=== PATIENT | male | born 1990 | race Caucasian/White ===

== ENCOUNTER 2020-02-25 16:24 | Outpatient (REF) | payer BC, SELFPAY ==
[2020-02-28 18:58] LABS: SARS-CoV-2 RNA Undetected (Undetected); SARS-CoV-2 Specimen Source Nasopharynx
== END 2020-02-25 16:44 ==
LOC: NCHCN 16:24
PROVIDERS: PCP Nurse Practitioner Family; Visit Provider Nurse Practitioner Family
DX: J06.9 Acute upper respiratory infection, unspecified (principal)
CPT/HCPCS: U0003

== ENCOUNTER 2020-09-05 01:00 | Outpatient (CLI) | payer OTHER, SELFPAY ==
--- NOTE | 2020-09-05 09:15 | DI.MRI_ITS ---
EXAM: MR LUMBAR SPINE WO CLINICAL HISTORY: INCREASING RECURRENT LOW BACK PAIN,[id number],M54.5. TECHNIQUE: Multiplanar multisequence MRI was performed. COMPARISON: No exams were available for comparison FINDINGS: The vertebral bodies are well maintained in height. No focal lesions are seen. There appears to be red marrow reconversion. Conus medullaris appears normal. The T11-12 through L1-2 discs and L3-4 di sc have normal appearance. There is minimal disc desiccation at L2-3. At L4-5: There is mild concen tric disc bulging. There are mild facet degenerative changes. There is no neural foraminal narrowin g or central canal stenosis. At L5-S1, there is disc desiccation and mild disc bulging. There is no significant central canal stenosis or neural foraminal narrowing. There are bilateral nerve root sh eath cysts. IMPRESSION: Mild degenerative disc changes at L4-5 and L5-S1. DATA REPOSITORY:
== END 2020-09-05 01:20 ==
PROVIDERS: PCP Nurse Practitioner Family; Visit Provider Nurse Practitioner Primary Care
DX: M47.816 Spondylosis without myelopathy or radiculopathy, lumbar region (principal); M54.5 Low back pain
CPT/HCPCS: 72148

== ENCOUNTER 2020-11-29 11:37 | Outpatient (CLI) | payer OTHER, SELFPAY ==
[2020-11-29 11:42] VITALS: BP 138/90; PULSE 63; RESP 17; TEMP 36.7; O2SAT 96
--- NOTE | 2020-11-29 12:30 | DI.RAD_ITS ---
EXAM: XR PAIN CLINIC LUMBAR SP 2V CLINICAL HISTORY: Dx:Lumbar Spondylosis TECHNIQUE: 2D and realtime digital imaging was performed. CONTRAST MATERIAL: Refer to procedure report. COMPARISON: No exams were available for comparison FINDINGS: Fluoroscopy was provided for Dr. Singleton during the performance of a lumbar medial branch block. Derrell conway refer to the procedure report for complete details. Fluoro time: 63.6 seconds IMPRESSION:
--- NOTE | 2020-11-29 12:33 | PDOC.PAIN ---
Pain Clinic Procedure Note Procedure Note Procedure Note: Date of procedure: November 29, 2020 Lumbar/Sacral Medial Branch Blocks #1 CORTES FLANAGAN has been referred to the [facility] for lumbar/sacral medial branch blocks. COMMENTS: He was evaluated by Ms. Samson in clinic on 11/06/20 and had an MRI of the lumbar spine on 09/05/20. I did review all of this information. DX: Lumbosacral spondylosis without myelopathy Patient was interviewed and the medical record reviewed. There were no medical, pharmacologic, radiographic or other structural contraindications to attempting fluoroscopically guided local anesthetic lumbar/sacral medial branch blocks. Risks and expected side effects as well as potential benefit of the procedure were reviewed and voiced concerns addressed. The printed consent form was signed and witnessed. Standard time-out procedure was performed. Patient was placed in the prone position on the fluoroscopy table and automated blood pressure cuff and pulse oximeter applied. The skin entry points for approaching the anatomic target points of the segmental medial branches of bilateral L3-L5DR were identified with fluoroscopy and marked. Following thorough Chlorhexadine preparation of the skin and draping, a 25 gauge 3.5 spinal needle was placed under fluoroscopic guidance down on to the target point for each respective segmental medial branch. Position was confirmed in A/P, oblique and lateral views with 0.25ml of omnipaque 240. At this point 0.5ml of 0.5% Bupivacaine was injected at each segmental sensory nerve. Vital signs were stable throughout the procedure and were as recorded in the docflowsheet by the nursing staff. Follow up plans and appointments were discussed and was instructed to keep careful note of how the usual pain was modified by these injections. Specifically was asked to keep a pain diary for the next 24 hours using a numeric pain scale of 0-10 and report these results at the follow-up visit. Post procedure instruction was given as documented in the nursing documentation and having met discharge criteria. Patient was discharged from the [facility]. Based on the medial branches blocked today, if the patient has adequate relief and we are able to proceed to radiofrequency ablation, the treatment should result in the denervation of the bilateral L4-L5 and L5-S1 FACET JOINTS. We would expect to denervate a total of 4 facets during the radiofrequency ablation. COMMENTS: He will call back with his 1-4 hour post-procedure pain scores. CC: Sang Li
[2020-11-29 12:41] VITALS: BP 140/94; PULSE 62; RESP 12; O2SAT 99
[2020-11-29] MEDS: Omnipaque 240 MG/ML 50 ML BTL IJ (12:42)
[2020-11-29] MEDS: Bupivacaine 0.5% Pres-Free 10 ML VIAL IJ (12:42)
== END 2020-11-29 11:57 ==
PROVIDERS: PCP Nurse Practitioner Family; Visit Provider Preventive Medicine Occupational Medicine
DX: M47.817 Spondylosis without myelopathy or radiculopathy, lumbosacral region (principal)
CPT/HCPCS: 64493; 64494; 72100; Q9967

== ENCOUNTER 2020-12-19 09:39 | Outpatient (CLI) | payer OTHER, SELFPAY ==
[2020-12-19 10:14] VITALS: BP 132/87; PULSE 50; RESP 17; TEMP 36.8; O2SAT 97
--- NOTE | 2020-12-19 10:41 | DI.RAD_ITS ---
EXAM: XR PAIN CLINIC LUMBAR SP 2V CLINICAL HISTORY: DX: Lumbar Spondylosis,BILAT LUMBAR MEDIAL BRANCH BLOCK TECHNIQUE: Fluoroscopy was provided for the referring physician for guidance with performing injecti on procedure. COMPARISON: No exams were available for comparison FINDINGS: Please see procedure note for details. Fluoro time: 55.1 seconds RADIATION DOSE DELIVERED:
--- NOTE | 2020-12-19 10:44 | PDOC.PAIN ---
Pain Clinic Procedure Note Procedure Note Procedure Note: Date of service: 12/19/20 Lumbar/Sacral Medial Branch Blocks CORTES FLANAGAN has been referred to the [facility] for lumbar/sacral medial branch blocks. COMMENTS: He did very well with his first LMBB on 11/29/20. DX: Lumbosacral spondylosis without myelopathy. Patient was interviewed and the medical record reviewed. There were no medical, pharmacologic, radiographic or other structural contraindications to attempting fluoroscopically guided local anesthetic lumbar/sacral medial branch blocks. Risks and expected side effects as well as potential benefit of the procedure were reviewed and voiced concerns addressed. The printed consent form was signed and witnessed. Standard time-out procedure was performed. Patient was placed in the prone position on the fluoroscopy table and automated blood pressure cuff and pulse oximeter applied. The skin entry points for approaching the anatomic target points of the segmental medial branches of the bilateral L3-L5DR were identified with anfluoroscopy and marked. Following thorough Chlorhexadine preparation of the skin and draping, a 25 gauge 3.5 spinal needle was placed under fluoroscopic guidance down on to the target point for each respective segmental medial branch.Position was confirmed in A/P, oblique and lateral views with 0.25ml of omnipaque 240. At this point I injected 0.5cc of 2% Lidocaine at each segmental sensory nerve. Vital signs were stable throughout the procedure and were as recorded in the docflowsheet by the nursing staff. He maintained asymptomatic bradycardia throughout the procedure starting prior to initiating the procedure. Follow up plans and appointments were discussed and was instructed to keep careful note of how the usual pain was modified by these injections. Specifically was asked to keep a pain diary for the next 24 hours using a numeric pain scale of 0-10 and report these results at the follow-up visit. Post procedure instruction was given as documented in the nursing documentation and having met discharge criteria. Patient was discharged from the [facility]. Based on the medial branches blocked today, if the patient has adequate relief and we are able to proceed to radiofrequency ablation, the treatment should result in the denervation of the bilateral L4-L5 and L5-S1 FACET JOINTS. We would expect to denervate a total of 4 facets during the radiofrequency ablation. COMMENTS: He will call back this is 1-4 hour post-procedure pain levels. Basilio Singleton DO, MPH Pain Management CC: Sang Li
[2020-12-19 10:55] VITALS: BP 150/97; PULSE 60; RESP 17; O2SAT 98
[2020-12-19] MEDS: Lidocaine 2% Pres-Free 5 ML VIAL IJ (10:55)
[2020-12-19] MEDS: Omnipaque 240 MG/ML 50 ML BTL IJ (10:55)
== END 2020-12-19 09:59 ==
PROVIDERS: PCP Nurse Practitioner Family; Visit Provider Preventive Medicine Occupational Medicine
DX: M47.817 Spondylosis without myelopathy or radiculopathy, lumbosacral region (principal)
CPT/HCPCS: 64493; 64494; 72100; Q9967

== ENCOUNTER 2021-02-13 07:43 | Outpatient (CLI) | payer OTHER, SELFPAY ==
--- NOTE | 2021-02-13 06:00 | DI.RAD_ITS ---
EXAM: XR PAIN CLINIC LUMBAR SP 2V CLINICAL HISTORY: DX: Lumbar Spondylosis TECHNIQUE: 2D and realtime digital imaging was performed. CONTRAST MATERIAL: Refer to procedure report. COMPARISON: No exams were available for comparison FINDINGS: Fluoroscopy was provided for Dr. Pathak during the performance of a bilateral radiofrequency ablation. Please refer to the procedure report for complete details. Fluoro time: 57.5 seconds IMPRESSION:
[2021-02-13 07:53] VITALS: BP 142/90; PULSE 62; RESP 17; TEMP 37.1; O2SAT 94
[2021-02-13] MEDS: Lactated Ringers 1,000 ML 80 ML IV (08:29)
[2021-02-13] MEDS: Midazolam 2 MG/2 ML VIAL IVP (08:32)
[2021-02-13] MEDS: fentaNYL 100 MCG/2 ML VIAL IVP ×2 (08:32→08:47)
[2021-02-13 09:02] VITALS: BP 152/96; PULSE 63; RESP 16; O2SAT 98
--- NOTE | 2021-02-13 09:06 | PDOC.PAIN ---
Pain Clinic Procedure Note Procedure Note Procedure Note: Bilateral Lumbar Radiofrequency with Coolief Machine PROCEDURE NOTE Date of Service: February 13, 2021 Patient: MARKUS FLANAGANRYDER SUAZO Provider: CHIDI DUKES MD Pre Operative Diagnosis: lumbar spondylosis Post Operative Diagnosis: same as above PROCEDURE: Radiofrequency Ablation of medial branches - Bilateral L3, L4, L5-DR CORTES SUAZO MASHA was brought into the fluoroscopy suite and positioned into the prone position on the fluoroscopy table and allowed to adjust to a position of comfort. A grounding pad was placed on the right thigh. The lumbar region was widely prepped with a chloraprep solution, allowed to air dry and draped in standard sterile surgical fashion. Local anesthesia was provided by ~20mL of 1% lidocaine delivered with a 25g needle. A 17g 100mm radiofrequency introducer needle was placed to the planned anatomic targets guided with intermittent fluoroscopy with a perpendicular approach to terminally place at the junction of the superior articular process and the transverse process of the bilateral L3, L4, and the base of the sacral ala on the bilateral for the L5 medial branch nerve. The stylets were removed and radiofrequency probes with a 4mm active tip were then inserted. Needle tip position of the probes was verified in the AP, oblique, and lateral views. At each site, the medial branch nerve was stimulated at 2 Hz to a maximum 1-2 volts determined to finalize safe needle and electrode placement. The patient was awake and responsive during this portion of the procedure. Each target was anesthetized with 1-2 mL of 2% Lidocaine for anesthesia for lesioning and then each target was lesioned at 80 degrees Celsius for 2 minutes and 30 seconds. Tissue impedences were noted to be between 250 and 500 Ohms. Post RF lesioning, 0.3cc solution of the 3cc of mixed 0.5% Bupivocaine (2cc) and 40mg/ml of depomedrol (1cc) was injected at each site. Electrodes and needles were then removed and bandages placed over the needle placement sites, the patient then returned to the supine position on a stretcher and transported to the recovery room without hemodynamic, neurologic, or allergic reactions. Fluoroscopic images were printed for hard copy recording and digitally archived. POST PROCEDURE EVALUATION: IMPRESSION: 1. Summary of procedure. patient tolerated procedure well, immediately after procedure, patient reported pressure like sensation across his back which improved within 5 minutes, decreased overall pain level however he is adjusting to the pressure in his back 2. Follow up with Ms Kirsten Samson APRN on prn basis 3. IV Anxiolysis: received total of 1mg of IV Versed and 50mcg of IV Fentanyl 4. This will result in denervation of bilateral L4/5 and L5/S1 facet joints Follow up plans and appointments were discussed with the CORTESRYDER SUAZO . Post procedure instruction was given as documented in nursing documentation and having met discharge criteria, CORTES SUAZO was discharged from the [facility]. COMMENTS: No complications. F/U with our office as needed. I personally performed this entire procedure. Conner Pathak MD Attending Physician
[2021-02-13] MEDS: Lidocaine 1% Pres-Free 30 ML VIAL IJ (09:35)
[2021-02-13] MEDS: Lidocaine 2% Pres-Free 5 ML VIAL IJ (09:36)
[2021-02-13] MEDS: methylPREDNISolone ACETATE 40 MG/ML VIAL IJ (09:37)
[2021-02-13] MEDS: Bupivacaine 0.5% Pres-Free 10 ML VIAL IJ (09:37)
== END 2021-02-13 07:44 | disposition home or self-care (01) ==
LOC: PC 07:45
PROVIDERS: PCP Nurse Practitioner Family; Visit Provider Internal Medicine
DX: M47.816 Spondylosis without myelopathy or radiculopathy, lumbar region (principal)
CPT/HCPCS: 64635; 64636; 72100; J1030; J2250; J3010

== ENCOUNTER 2022-01-23 17:04 | Outpatient (REF) | payer BC, SELFPAY ==
[2022-01-28 12:11] LABS: Helicobacter pylori Ag, Feces Negative (Negative)
== END 2022-01-23 17:05 | disposition home or self-care (01) ==
LOC: LBN 17:04
PROVIDERS: PCP Nurse Practitioner Family; Visit Provider Nurse Practitioner Family
DX: K21.9 Gastro-esophageal reflux disease without esophagitis (principal)
CPT/HCPCS: 87338

== ENCOUNTER 2022-09-09 07:44 | Emergency (ER) | payer OTHER, BC, SELFPAY ==
[2022-09-09] VITALS (15 sets, daily range): BP systolic 125–159; BP diastolic 77–137; PULSE 50–140; RESP 10–17; TEMP 36.5; O2SAT 93–100
--- NOTE | 2022-09-09 08:09 | ED.GENADUL_ITS ---
Discharge Plan Disposition Patient Disposition: HOME Condition: Improving Discharge Details Clinical Impression: Back pain, Back spasm Primary Care Provider: Unknown,Unknown ED Provider: Robin Ventura Home Meds and New Rx's Prescriptions: New cyclobenzaprine 10 mg tablet 10 mg PO TID PRNQty: 10 0RF naproxen [Naprosyn] 500 mg tablet 500 mg PO BID PRNQty: 14 0RF oxycodone-acetaminophen [Percocet] 5-325 mg tablet 1 tab PO Q8H PRNQty: 8 0RF Continued omeprazole 40 mg Capsule,Delayed Release(Dr/Ec) 40 mg PO BID Discharge Instructions Instructions: Back Pain (ED), Muscle Spasm (ED) Additional Instructions: Flexeril, Naprosyn, Percocet as directed. Flexeril and Percocet both may cause drowsiness. Percocet may cause constipation, consider taking [id number] stool softener while taking this medication. Gentle stretching as tolerated. Cool and/or warm compresses every 2 hours for 20 minutes. Please watch for new or worsening symptoms and return to the ER for any concerns. Lastly, please reach out to your back specialist later today or tomorrow to discuss your ER visit, ongoing symptoms, and need for outpatient reevaluation. Medical Decision Making This is a 32-year-old male with a history of chronic back pain, sees a back specialist, has had radio frequency ablation x2, yesterday while playing flag football made a quick and jarring movement reporting increased pain and spasm of his right lower back. Patient denies IV drug use, fever, radiation of pain, change in bowel or bladder function, numbness, tingling, weakness. Clinically he appears anxious, hyperventilating, uncomfortable but neurologically intact. No evidence of cauda equina. Plan to provide IV Valium, Toradol, morphine. I was called to the room as the patient was having a panic attack, appeared to be having carpopedal spasm, hyperventilating. We discussed calming and breathing techniques. Patient reports very similar episode back in May. Will obtain routine laboratory values to assess for potential electrolyte abnormality although low suspicion given his presentation. Upon reevaluation patient is now resting comfortably, no longer anxious or in signs of distress. No spasms. He is resting comfortably. He remains neurologically intact. Reports that his spasms have broken completely while at rest but does have pain with engagement of his core, movement, etc. Patient states this feels more tolerable and believes that he can be safely discharged in his current condition. He does have an outpatient back team who he plans to contact later today or tomorrow. I will provide a prescription for short-term analgesia and muscle relaxer. Strict discharge and return precautions were provided. Patient understands, is agreeable to this plan, and has no additional questions or concerns upon discharge. This documentation was generated using [employer] system, please disregard any oddities of phrase or misspellings. Medical Records Medical records reviewed: Yes I reviewed the patient's medical records. Lab Data Lab results reviewed: Yes I reviewed the patient's lab results. Labs: Laboratory Tests Range/Units 09/09/22 09/09/22 08:06 08:06 WBC (4.4-10.8) 10^3/uL 5.56 RBC (4.36-5.78) 10^6/uL 5.74 Hgb (13.5-17.5) g/dL 17.0 Hct (40.0-50.0) % 47.5 MCV (80-95) fL 83 MCH (27.0-33.0) pg 29.6 MCHC (32.0-36.0) % 35.8 RDW (11.8-14.1) % 12.2 Plt Count (130-400) 10^3/uL 284 MPV (8.0-11.0) fL 9.8 Immature Gran % 0.2 Neutrophils % 46.3 Lymphocytes % 42.6 Monocytes % 8.8 Eosinophils % 1.6 Basophils % 0.5 Nucleated RBC % (0.0-0.3) % 0.0 Absolute Neutrophils (1.2-6.7) 10^3/uL 2.57 Absolute Lymphocytes (1.2-3.4) 10^3/uL 2.37 Absolute Monocytes (0.1-0.8) 10^3/uL 0.49 Absolute Eosinophils (0.0-0.7) 10^3/uL 0.09 Absolute Basophils (0.0-0.2) 10^3/uL 0.03 Sodium (136-145) mmol/L 141 Potassium (3.5-5.1) mmol/L 3.7 Chloride (98-107) mmol/L 105 Carbon Dioxide (21.0-32.0) mmol/L 25.1 Anion Gap (3-11) mmol/L 10.9 BUN (7-18) mg/dL 17 Creatinine (0.70-1.30) mg/dL 1.1 Est GFR (CKD-EPI 2020) (mL/min/1.73m2) 90.34 Glucose (74-106) mg/dL 123 H Calcium (8.5-10.1) mg/dL 9.5 Magnesium (1.8-2.4) mg/dL 1.7 L Total Bilirubin (0.2-1.0) mg/dL 0.9 AST (15-37) U/L 34 ALT (16-63) U/L 30 Alkaline Phosphatase (46-116) U/L 44 L Total Protein (6.4-8.2) g/dL 8.1 Albumin (3.4-5.0) g/dL 4.3 Lipase (73-393) U/L 72 HPI General Mode of arrival: ambulatory . Date/Time Provider Initiated Documentation: 09/09/22 08:03 . Limitations to Documentation: no limitations . Information obtained by: patient . History of Present Illness 32 year old M presents to the emergency department with the chief complaint of back pain/spasm, described as severe and similar to prior episodes, with intensity rated at 10. Quality is described as aching and other (spasm), and is localized to the back. Patient reports no radiation. Patient started experiencing this day(s) (1) and it has been constant. No relieving factors improve symptom(s), Movement worsens symptoms . Patient notes no other symptoms.. Patient did receive the following treatments prior to arrival, other (Tylenol) Related Data Home Medications Medication Instructions Recorded Confirmed omeprazole 40 mg capsule,delayed 40 mg PO BID 10/31/20 09/09/22 release cyclobenzaprine 10 mg tablet 10 mg PO TID PRN #10 tabs 09/09/22 naproxen 500 mg tablet (Naprosyn) 500 mg PO BID PRN #14 tabs 09/09/22 oxycodone-acetaminophen 5 mg-325 1 tab PO Q8H PRN #8 tabs 09/09/22 mg tablet (Percocet) Previous Rx's Medication Instructions Recorded cyclobenzaprine 10 mg tablet 10 mg PO TID PRN #10 tabs 09/09/22 naproxen 500 mg tablet (Naprosyn) 500 mg PO BID PRN #14 tabs 09/09/22 oxycodone-acetaminophen 5 mg-325 1 tab PO Q8H PRN #8 tabs 09/09/22 mg tablet (Percocet) Allergies Allergy/AdvReac Type Severity Reaction Status Date / Time No Known Allergies Allergy Unverified 09/09/22 07:54 General Stated Complaint: Nk/Back Pain BESSY: 3 Review of Systems Constitutional Constitutional: Denies fever(s) and Denies weakness ENT Ears, Nose, Mouth, and Throat: Denies neck pain Cardiovascular Cardiovascular: Denies chest pain and Denies dyspnea Respiratory Respiratory: Denies dyspnea Gastrointestinal Gastrointestinal: Denies abdominal pain, Denies nausea and Denies vomiting Genitourinary Genitourinary: Denies urinary hesitancy and Denies urinary incontinence Musculoskeletal Musculoskeletal: Reports back pain, Denies neck pain, Denies numbness, Reports stiffness and Denies tingling Integumentary/Breasts Skin/Breast: Denies rash Neurologic Neurologic: Denies numbness, Denies tingling and Denies weakness PFSH All Active Problems (Updated 09/09/22 @ 10:08 by PATRICK Webster) Back pain (Acute) Back spasm (Acute) Medical History Family history of alcoholism GERD (gastroesophageal reflux disease) Low back pain Right hip pain URI (upper respiratory infection) Surgical History Hx of shoulder surgery left shoulder x2 Social History Smoking/Tobacco Use Status: Former Tobacco Use Smoking risk assessment performed?: Yes Alcohol Intake: current Alcohol Intake frequency: a few times a month Alcohol type: beer, wine and hard liquor Drug use: Never Household members: spouse Housing: house Number of Children: 2 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 What type of physical activity do you participate in: independent ambulation Do you feel safe at home: Yes Do you feel safe in your relationship?: Yes Exam Const General: cooperative, healthy appearing and anxious Orientation: alert, awake and oriented x3 HENMT Head: normal to inspection, normocephalic and atraumatic Face and sinus: normal facial exam Mouth: moist mucous membranes Eyes Conjunctivae: conjunctivae normal Neck Neck: normal visual inspection, full ROM, no meningeal signs, trachea midline, supple and nontender Resp Effort & Inspection: normal respiratory effort, able to speak in complete sentences and other (Hyperventilating) Auscultation: clear to auscultation bilaterally Cardio Rate: regular rate Rhythm: regular rhythm GI Inspection: normal to inspection Palpation: soft, not firm, no guarding and nontender Back/Spine/Pelvis Back: no CVA tenderness and back tenderness Thoracic/Lumbar Spine: straight leg raise positive (Bilateral, right 10 degrees, left 15 degrees) Other: Right-sided lumbar tenderness with right-sided paravertebral spasm Skin General skin exam: no rashes or lesions noted Neuro General: patient alert, patient awake, moves all extremities and no focal motor deficits Cognition: normal cognition Speech: speech normal Gait: antalgic Motor: muscle tone normal throughout and strength 5/5 throughout Sensory Exam: no sensory deficits noted Extrem General: normal to inspection, full ROM and capillary refill normal Psych Appearance: grossly normal Mental Status: mental status grossly normal Course Vital Signs Vital signs: Vital Signs Temperature 36.5 C 09/09/22 07:52 Pulse 69 09/09/22 07:52 Respiratory Rate 17 09/09/22 07:52 Blood Pressure 159/137 H 09/09/22 07:52 Pulse Oximetry 100 09/09/22 07:52 Temperature 36.5 C 09/09/22 07:52 Temperature Source Tympanic 09/09/22 07:52 Pulse 69 09/09/22 07:52 Respiratory Rate 17 09/09/22 07:52 Respiratory Effort Non-Labored 09/09/22 07:59 Blood Pressure 159/137 H 09/09/22 07:52 Blood Pressure Position Sitting 09/09/22 07:52 Pulse Oximetry 100 09/09/22 07:52 Oxygen Delivery Method Room Air 09/09/22 07:52 Oxygen Flow Rate 0 09/09/22 07:52 Pain Level 10 09/09/22 07:52 PAWSS Have you Been Recently Intoxicated or Drunk Within the Last 30 days?: No Have you Ever Experienced Previous Episodes of Alcohol Withdrawal?: No Have you ever Experienced Withdrawal Seizures?: No Have you ever Experienced Delirium Tremens(DT)s?: No Have you ever undergone Alcohol Rehabilitation Treatment (i.e, inpt ot outpatient treatment programs)?: No Have you ever Experienced Blackouts?: No Have you ever Combined Alcohol with other Downers within the last 90 days?: No Have you ever Combined Alcohol with any other Substance of Abuse during the last 90 days?: No Positive Blood Alcohol level on Presentation? [PCS.BAL]: No Evidence of Increased Autonomic Activity (i.e. HR>120, tremor, sweating, agitation, nausea)?: No Result: 0
[2022-09-09] MEDS: diazePAM 10 MG/2 ML SYR IVP (08:40)
[2022-09-09] MEDS: Ketorolac 30 MG/ML VIAL IVP (08:41)
[2022-09-09] MEDS: MORPHine 4 MG/ML SYR IVP (08:42)
[2022-09-09 08:56] LABS: Abs Immature Grans 0.01 10^3/uL (0.0-0.06); Absolute Basophil Count 0.03 10^3/uL (0.0-0.2); Absolute Eosinophil Count 0.09 10^3/uL (0.0-0.7); Absolute Lymphocyte Count 2.37 10^3/uL (1.2-3.4); Absolute Monocyte Count 0.49 10^3/uL (0.1-0.8); Absolute Neutrophil Count 2.57 10^3/uL (1.2-6.7); Basophils % 0.5; Eosinophils % 1.6; HCT 47.5 % (40.0-50.0); Immature Grans % 0.2; Lymphocytes % 42.6; MCH 29.6 pg (27.0-33.0); MCHC 35.8 % (32.0-36.0); MCV 83 fL (80-95); MPV 9.8 fL (8.0-11.0); Monocytes % 8.8; Neutrophils % 46.3; Platelet Count 284 10^3/uL (130-400); RBC 5.74 10^6/uL (4.36-5.78); RDW 12.2 % (11.8-14.1); RDW-SD 37.1 fL; WBC 5.56 10^3/uL (4.4-10.8)
[2022-09-09 09:10] LABS: ALT 30 U/L (16-63); AST 34 U/L (15-37); Albumin 4.3 g/dL (3.4-5.0); Alkaline Phosphatase 44 U/L (46-116); Anion Gap 10.9 mmol/L (3-11); BUN 17 mg/dL (7-18); Bilirubin, Total 0.9 mg/dL (0.2-1.0); CO2 25.1 mmol/L (21.0-32.0); CREATININE 1.1 mg/dL (0.70-1.30); Calcium 9.5 mg/dL (8.5-10.1); Chloride 105 mmol/L (98-107); Estimated GFR 90.34 (mL/min/1.73m2); Glucose 123 mg/dL (74-106); Lipase 72 U/L (73-393); Magnesium 1.7 mg/dL (1.8-2.4); Potassium 3.7 mmol/L (3.5-5.1); Sodium 141 mmol/L (136-145); Total Protein 8.1 g/dL (6.4-8.2)
== END 2022-09-09 10:31 | disposition home or self-care (01) ==
PROVIDERS: Emergency Provider Physician Assistant
DX: M54.50 Low back pain, unspecified (principal); M62.830 Muscle spasm of back
CPT/HCPCS: 36415; 80053; 83690; 96374; 96375; 99284; 83735; 85025; J1885; J2270; J3360

== ENCOUNTER 2022-10-16 08:38 | Emergency (ER) | payer OTHER, BC, SELFPAY ==
[2022-10-16 08:41] VITALS: BP 148/100; PULSE 53; RESP 18; TEMP 36.6; O2SAT 98
--- NOTE | 2022-10-16 08:45 | DI.RAD_ITS ---
Exam(s) XR LUMBAR SPINE COMPLETE EXAM: XR LUMBAR SPINE COMPLETE CLINICAL HISTORY: Lower back pain. TECHNIQUE: 2D digital imaging was performed of the lumbar spine. Five images were obtained. AP, la teral, right oblique, left oblique and L5-S1 spot views were obtained. COMPARISON: No exams were available for comparison FINDINGS: BONES: No fracture or destructive lesion. There are endplate osteophytes at L4-5. no facet hypertroph y identified. DISKS: Intervertebral disc spaces are maintained. ALIGNMENT: Lumbar spinal alignment is within normal limits. No spondylolysis or spondylolisthesis. SOFT TISSUE: Normal. IMPRESSION: Mild lumbar spondylosis. DATA REPOSITORY: RADIATION DOSE DELIVERED:
--- NOTE | 2022-10-16 08:59 | ED.GENADUL_ITS ---
Discharge Plan Disposition Patient Disposition: Home Condition: Stable Discharge Details Clinical Impression: Chronic low back pain Primary Care Provider: Unknown,Unknown ED Provider: Radha Ortega Home Meds and New Rx's Prescriptions: New oxycodone-acetaminophen [Endocet] 5-325 mg tablet 1 tab PO Q6H PRN (Reason: pain) Qty: 10 0RF Rx Instructions: Take one tablet with food up to 4 times daily as needed for moderate to severe pain. Continued omeprazole 40 mg Capsule,Delayed Release(Dr/Ec) 40 mg PO BID naproxen [Naprosyn] 500 mg tablet 500 mg PO BID PRNQty: 14 0RF meloxicam 7.5 mg Tablet 7.5 mg PO BID Discharge Instructions Instructions: Low Back Strain (ED) Additional Instructions: X-ray is largely within normal limits however there is some osteophyte formation which can be a sign of inflammation. Follow up with primary care provider in 3-5 days. Return to ED sooner if any worsening or concerns. Increase oral fluids. Please take the pain medication as prescribed with food. The pain medication was sent to the pharmacy on file. Please take Ibuprofen with food every 4-6 hours as needed for pain and swelling. Alternate ice and heat. Stand Alone Forms: Work Release Referrals: Basilio Singleton DO [OSTEOPATHIC DOCTOR] - 5 days Medical Decision Making 32-year-old male presents to the ER with chief complaint of lower back pain which is chronic. He reports that over the last month his pain has been exacerbated. He does have intermittent radiation of pain down his right leg. Has a history of a herniated disc. He has been seen in the [facility] and was recently prescribed meloxicam by his PCP. He reports this is not working. L-spine x-rays ordered, Toradol and Valium IM. Patient reevaluation, he reports that he still having pain, Percocet ordered. Awaiting x-ray results. Patient given a prescription for Percocet for 10 tablets, discussed home care and follow-up care. This text was generated using [employer] system, please disregard any oddities of phrase or misspellings. Imaging Data Radiologic Study: Imaging: X-Ray Radiologist's impression: CLINICAL HISTORY: ? Lower back pain.? TECHNIQUE:? 2D digital imaging was performed of the lumbar spine.? Five images were obtained.? AP, lateral, right oblique, left oblique and L5-S1 spot views were obtained. COMPARISON:? No exams were available for comparison FINDINGS: BONES: No fracture or destructive lesion. There are endplate osteophytes at L4- 5. no facet hypertrophy identified. DISKS: Intervertebral disc spaces are maintained. ALIGNMENT: Lumbar spinal alignment is within normal limits. No spondylolysis or spondylolisthesis. SOFT TISSUE: Normal. IMPRESSION: Mild lumbar spondylosis.? Sign Out No HPI General Mode of arrival: ambulatory . Date/Time Provider Initiated Documentation: 10/16/22 08:40 . Limitations to Documentation: no limitations . Information obtained by: patient, RN notes reviewed and old records reviewed . HPI Narrative: 32-year-old male presents to the ER with chief complaint of lower back pain which is chronic. He reports that over the last month his pain has been exacerbated. He does have intermittent radiation of pain down his right leg. Has a history of a herniated disc. He has been seen in the [facility] and was recently prescribed meloxicam by his PCP. He reports this is not working. He denies any loss of bowel or bladder control. Denies any numbness or weakness. He is also been taking Tylenol. He has not had any recent x-rays or imaging done. He reports that he had a cortisone shot which seemed to exacerbate his pain. He denies any known injuries. Related Data Home Medications Medication Instructions Recorded Confirmed omeprazole 40 mg capsule,delayed 40 mg PO BID 10/31/20 10/16/22 release naproxen 500 mg tablet (Naprosyn) 500 mg PO BID PRN #14 tabs 09/09/22 10/16/22 meloxicam 7.5 mg tablet 7.5 mg PO BID 10/16/22 10/16/22 oxycodone-acetaminophen 5 mg-325 1 tab PO Q6H PRN pain #10 tabs 10/16/22 mg tablet (Endocet) Previous Rx's Medication Instructions Recorded naproxen 500 mg tablet (Naprosyn) 500 mg PO BID PRN #14 tabs 09/09/22 oxycodone-acetaminophen 5 mg-325 1 tab PO Q6H PRN pain #10 tabs 10/16/22 mg tablet (Endocet) Allergies Allergy/AdvReac Type Severity Reaction Status Date / Time No Known Allergies Allergy Unverified 10/16/22 08:46 General Stated Complaint: Nk/Back Pain BESSY: 3 Review of Systems All systems reviewed & are unremarkable except as noted in HPI and below Musculoskeletal Musculoskeletal: Reports as per HPI, Reports back pain, Denies muscle weakness, Denies numbness, Reports radiating pain into limb, Reports stiffness and Denies tingling Neurologic Neurologic: Denies numbness and Denies tingling PFSH All Active Problems (Updated 10/16/22 @ 10:45 by Radha Ortega NP) Chronic low back pain (Chronic) Medical History Family history of alcoholism GERD (gastroesophageal reflux disease) Low back pain Right hip pain URI (upper respiratory infection) Surgical History Hx of shoulder surgery left shoulder x2 Social History Smoking/Tobacco Use Status: Former Tobacco Use Smoking risk assessment performed?: Yes Alcohol Intake: current Alcohol Intake frequency: a few times a month Alcohol type: beer, wine and hard liquor Drug use: Never Substance use type: does not use Household members: spouse Housing: house Number of Children: 2 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 Appears stated age. Normal body habitus. Head: Normocephalic, no trauma. Chest: RRR, Normal S1, S2, distal pulses intact. Resp: Lungs clear to auscultation bilaterally, no wheezes, rales, or rhonchi. Abdomen: Soft, non-distended, Normoactive bowel sounds all 4 quads. Musculoskeletal: Normal gait, 5/5 strength to all four extremities. Skin: No suspicious rashes or lesions. Capillary refill less than 2 sec. Neurologic: Cranial nerves II-XII intact. Alert and oriented x 3. Motor: No deficits noted. Sensory: Intact bilaterally all 4 extremities. Reflexes: DTR's intact bilaterally.. Hematologic/Lymphatic: No ecchymosis, no lymphadenopathy. Course Vital Signs Vital signs: Vital Signs Temperature 36.6 C 10/16/22 08:41 Pulse 53 L 10/16/22 08:41 Respiratory Rate 18 10/16/22 08:41 Blood Pressure 148/100 H 10/16/22 08:41 Pulse Oximetry 98 10/16/22 08:41 Temperature 36.6 C 10/16/22 08:41 Temperature Source Oral 10/16/22 08:41 Pulse 53 L 10/16/22 08:41 Respiratory Rate 18 10/16/22 08:41 Respiratory Effort Non-Labored 10/16/22 08:44 Blood Pressure 148/100 H 10/16/22 08:41 Blood Pressure Position Sitting 10/16/22 08:41 Pulse Oximetry 98 10/16/22 08:41 Oxygen Delivery Method Room Air 10/16/22 08:41 Oxygen Flow Rate 0 10/16/22 08:41 Pain Level 8 10/16/22 08:41 PAWSS Have you Been Recently Intoxicated or Drunk Within the Last 30 days?: No Have you Ever Experienced Previous Episodes of Alcohol Withdrawal?: No Have you ever Experienced Withdrawal Seizures?: No Have you ever Experienced Delirium Tremens(DT)s?: No Have you ever undergone Alcohol Rehabilitation Treatment (i.e, inpt ot outpatient treatment programs)?: No Have you ever Experienced Blackouts?: No Have you ever Combined Alcohol with other Downers within the last 90 days?: No Have you ever Combined Alcohol with any other Substance of Abuse during the last 90 days?: No Result: 0
[2022-10-16] MEDS: diazePAM 10 MG/2 ML SYR 5 MG IM (09:19)
[2022-10-16] MEDS: Ketorolac 30 MG/ML VIAL IM (09:20)
[2022-10-16] MEDS: oxyCODONE 5 mg/Acetaminophen 325 mg TAB 1 TAB PO (10:46)
== END 2022-10-16 11:11 | disposition home or self-care (01) ==
PROVIDERS: Emergency Provider Registered Nurse Emergency
DX: M54.50 Low back pain, unspecified (principal); G89.29 Other chronic pain; M79.604 Pain in right leg; Z87.891 Personal history of nicotine dependence
CPT/HCPCS: 96372; 99284; 72110; J1885; J3360

== ENCOUNTER 2024-06-15 07:47 | Day surgery (SDC) | payer OTHER, SELFPAY ==
--- NOTE | 2024-06-14 13:13 | W.PM.DSUDISC ---
Date of service: 06/15/24 Time of Service: 10:28 Discharge Plan Disposition Patient Disposition: Home Condition: Good Discharge Details Reason For Visit: stomach/colon scope Attending Provider: Re Ackerman Primary Care Provider: Bridget Urbina Home Meds and New Rx's Prescriptions: Continued diazepam [Valium] 10 mg tablet 10 mg PO ONCE PRN (Reason: premedication) Qty: 1 0RF Rx Instructions: Take 1 hour prior to procedure. 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 docusate sodium 100 mg capsule 100 mg PO DAILY Rx Instructions: take two capsules by mouth every day as needed to soften stool omega 1-vzj-tcw-fish oil [Fish Oil] 1,000 mg (120 mg-180 mg) capsule 2 cap PO DAILY pantoprazole 40 mg tablet,delayed release (DR/EC) 40 mg PO DAILY PRN triamcinolone acetonide 0.1 % cream 1 applic topical DAILY PRN Rx Instructions: apply small amount topically three times daily as needed for eczema on hands Discontinued polyethylene glycol 3350 17 gram/dose powder 238 g PO ONCE Qty: 238 0RF Rx Instructions: take per colonoscopy instructions bisacodyl [Dulcolax (bisacodyl)] 5 mg tablet,delayed release (DR/EC) 5 mg PO ONCE Qty: 4 0RF Rx Instructions: take per colonoscopy instructions Discharge Instructions Additional Instructions: DSU Colonoscopy Post-Op Instructions Instructions for Everyone who is given Anesthesia: For your safety, please do the following for the next twenty-four (24) hours: *Do Not operate a motor vehicle (car, truck, motorcycle, etc.) *Do Not drink alcoholic beverages or use any recreational drugs for the first 24 hours or while taking pain medications. The medications in your body may have a reaction that can be dangerous. *Do Not make any important decisions or sign any important papers. Findings: -Gastritis -Duodenitis -Esophagitis -Normal colon -Biopsies were taken today. My office will send you a letter with results in 2 to 3 weeks time. -Continue to take Protonix/pantoprazole daily Continue with lifestyle modifications: no alcohol, tobacco products, Aspirin or NSAID's (ibuprofen, Motrin, Naprosyn, aleve, etc), soda pop/any carbonated beverages, caffeine (including tea & chocolate), and acidic foods, (tomatoes, citrus, onions, peppermints) spicy or fried/fatty foods. Do not lie down for 30 minutes after eating, and do not eat 2 hours prior to bedtime. Avoid wearing tight fitting clothing/ belts Follow up: Repeat colonoscopy in 5 years time. 1. No lifting over 20 pounds or strenuous activity for the first 24 hours after your procedure. After 24 hours there are no restrictions on your activity but you may feel fatigued for a few days. 2. After you arrive home you may have a light meal and return to your normal diet as you can tolerate it without feeling sick to your stomach. 3. You may have a bloated, gaseous feeling in your belly (abdomen) after a colonoscopy. Passing gas and belching will help. Walking or lying down on your left side with your knees flexed may relieve the discomfort. Call the office at [phone] (Office) or [phone] (Hospital) right away if you notice any of the following: a.Vomiting of blood or ?coffee ground stools?. b.Rectal bleeding 1Tbsp, blood clots or continuous bleeding. c.Severe belly (abdominal) pain. d.A hard distended belly (abdomen) and an inability to pass gas. 4. Please don?t expect to have a normal BM (bowel movement) for 2-3 days after your procedure. 5. If there are questions regarding the findings of your procedure, please contact your doctor 6. If you are unable to contact your doctor with a problem, contact the hospital at [phone]. 7. Continue all your regular medications unless directed otherwise. I understand the above instructions and have no questions. Signature of Patient or Adult Escort Name of Responsible Adult Escort Signature of Nurse Date/Time Activity:: see above Diet:: see above Discharge Orders Discharge Orders: Discharge Order (Routine); Ordered 06/15/24 Ordered By: Re Ackerman DS: Diagnosis Discharge Diagnosis (1) Family history of von Willebrand disease: Status: Acute (2) Chronic GERD: Status: Acute (3) Rectal bleeding: Status: Acute Asessment and Plan: The patient is seen and examined after their colonoscopy.? The patient has been able to pass gas.? They are not having abdominal pain.? They have been able to tolerate liquids and a snack.? They do not have any nausea or vomiting.? They are not having any chest pain or shortness of breath.??? They are not having any rectal bleeding. Their vital signs have been stable-see nursing notes. We discussed findings during their colonoscopy, and any biopsies that were done/polyps that were removed. The patient will be sent a letter with any biopsy results, and when to repeat the colonoscopy.-see discharge instructions. Patient was given explicit instructions to follow-up regarding colonoscopy-refer to discharge instructions.? We reviewed resumption of medications. Patient verbalized understanding and discharged in stable and satisfactory condition- See nursing notes. (4) Gastritis: Status: Acute (5) Duodenitis: Status: Acute (6) Esophagitis: Status: Acute
--- NOTE | 2024-06-14 20:58 | COLE_ITS ---
Date of service: 06/15/24 Time of Service: 10:32 Colonoscopy Report Date of procedure: 06/15/24 Pre-op diagnosis general: rectal bleeding/change in bowel habits/burn pit exposure Post-op diagnosis procedure note: same Surgeon: Re Ackerman Anesthesia Type: General:No Airway Estimated blood loss (mL): 2 Pathology: other Complications: None Disposition: same day Prep: Miralax/Dulcolax Procedure Description: After informed consent was obtained, explaining risks of the procedure, including but not limits to: bleeding, infections, complications of anesthesia, perforations (which may require antibiotics and /or surgery and stay in the hospital), and abdominal pain/cramping. The patient was taken to the procedure room and placed in a left decubitous position. Monitors were applied and a time out was done. The patients name, date of , procedure, allergies to medications and metal in their body was reviewed. The patient was then sedated. Once sedated and comfortable a rectal exam was done. External exam was normal. Internal exam revealed a normal sphincter tone and no palpable masses. The prostate -no palpable masses The previously lubricated Olympus scope was then introduced (see RN notes for scope number) and retrofelexed. No internal hemorrhoids were identified. The scope was then advanced to the cecum without difficulty. The TI and appendiceal orifice were identified. The scope was then slowly retracted over 15 minutes back into the rectum. Polyps: None. Diverticula: None. Because of his history of exposure biopsies were taken. Biopsies were taken in the cecum/80/60/50/40/20 cm and rectum. Biopsies were taken with a cold biting forcep. All specimen is retrieved and no bleeding is noted. The mucosa is pink and healthy w/ a normal vascular pattern. The scope was removed, and the patient was woken up and taken back to Same day surgery in stable condition. The patient tolerated the procedure well and there were no immediate complications. Follow up: The patient should follow up in 5 years, unless they develop changes in bowel habits or other new gastrointestinal complaints. [facility] Right Colon: 2 Left Colon: 3 Transverse Colon: 3 Total Score: 8
--- NOTE | 2024-06-14 20:59 | ENDO_ITS ---
Date of service: 06/15/24 Time of Service: 10:30 Endoscopy Report DATE OF PROCEDURE: 06/15/24 PRE-OP DIAGNOSIS: chronic gerd POST-OP DIAGNOSIS: other (Duodenitis/gastritis/esophagitis- ) SURGEON: Re Ackerman ANESTHESIA TYPE: General:No Airway ESTIMATED BLOOD LOSS: 2 PATHOLOGY: other COMPLICATIONS: None DISPOSITION: same day PROCEDURE DESCRIPTION: After informed consent was obtained 9Risks: bleeding, infections, perforations {which could require surgery or antibiotics and prolonged hospital stay}, or ostomy, and complications of anaesthesia, fredo aspiration). The patient was take to the procedure room and placed in a supine position. Monitors were applied and a time out was done. The patients name, date of , procedure type, allergies to medications and metal in their body was reviewed. A bite block was placed and the patient was sedated. Once sedated and comfortable an Olympus gastroscope (see RN notes for scope #) was advanced through the oropharynx which was grossly normal, and passed into the esophagus. The proximal and mid- esophagus were normal. The distal esophagus does not show any: dilation/strictures/varices/erosions or ulcers/bleeding noted. There is some mild esophagitis noted at the GE junction. There are some islands of squamous cell mucosa that could be considered Gonzales's. Biopsies were taken of this area. the scope was advanced into the stomach and through the pylorus into the proximal jejunum. A bx is taken for celiac Dx . The duodenum was noted to be mild duodenitis. Biopsies were done of the duodenal bulb.. The scope was retracted back into the stomach and biopsies were taken of the antrum. There were no/gastropathy/ ulcers/masses noted. There is mild gastritis noted radiating from the antrum in a striped fashion. The scope was retroflexed. The cardia and fundus were noted to be normal. There no a hiatal hernia noted. The scope was retracted back into the esophagus and biopsies were done of the GE junction (in all 4 quadrants) and distal esophagus (2cm above the GE junction) to rule out Gonzales's. All specimens are retrieved and no bleeding was noted. The Z line was irregular. The GE junction was at 40 cm. The scope was removed and the patient was woken up and taken back to [facility] in stable condition.
[2024-06-15 07:59] VITALS: BP 134/92; PULSE 44; RESP 16; TEMP 36.8; O2SAT 98
[2024-06-15] MEDS: Lactated Ringers 1,000 ML 80 ML IV (08:17)
--- NOTE | 2024-06-15 08:25 | W.ANESPRE ---
General Info Date of Service Date Performed: 06/15/24 Height: 6 ft 3 in Weight: 95.4 kg Body Mass Index (BMI): 26.2 Surgical Procedure: Operation Date: 06/15/24 09:20 Proposed Procedure Side Surgeon p Colonoscopy/Gastroscopy Re Ackerman, DO Actual Procedure Side Surgeon p Colonoscopy/Gastroscopy Not Applicable Re Ackerman, DO Pre-Op Diagnosis Post-Op Diagnosis Chronic GERD Meds Allergies and Home Medications Allergies Allergy/AdvReac Type Severity Reaction Status Date / Time No Known Allergies Allergy Verified 06/15/24 07:57 Home Medication ?Medication ?Instructions ?Recorded docusate sodium 100 mg capsule 100 mg PO DAILY 04/26/24 omega 1-tns-jlv-fish oil 1,000 mg 2 cap PO DAILY 04/26/24 (120 mg-180 mg) capsule (Fish Oil) pantoprazole 40 mg tablet,delayed 40 mg PO DAILY PRN 05/20/24 release triamcinolone acetonide 0.1 % 1 applic topical DAILY PRN 05/20/24 topical cream diazepam 10 mg tablet (Valium) 10 mg PO ONCE PRN premedication #1 06/09/24 tab Current Visit Medications: Current Medications Generic Name Dose Route Start Last Admin Trade Name Freq PRN Reason Stop Dose Admin Hyoscyamine Sulfate 0.125 mg 06/15/24 01:12 Hyoscyamine 0.125 Mg Sl/Oral/Chew SL 07/15/24 01:11 DIRECTED PRN Ringer's Solution 1,000 mls @ 80 mls/hr 06/15/24 06:00 06/15/24 08:17 IV 07/14/24 23:59 80 mls/hr INFUSION COLT Administration IV Miscellaneous Supplies 1 each 06/15/24 06:00 Iv Access IV 07/14/24 23:59 DIRECTED COLT Ondansetron HCl 4 mg 06/15/24 01:12 Ondansetron 4 Mg/2 Ml Vial IVP 07/15/24 01:11 Q4H PRN PRN Nausea / Vomiting Sodium Chloride 0 ml 06/15/24 06:00 Normal Saline Flush 10 Ml Syr IV 07/14/24 23:59 PRN PRN Sodium Chloride 0 ml 06/15/24 06:00 Normal Saline 10 Ml Vial IJ 07/14/24 23:59 DIRECTED PRN Sterile Water 0 ml 06/15/24 06:00 Water,Injection,Sterile 10 Ml Vial IJ 07/14/24 23:59 DIRECTED PRN PFSH Active Problems Active Problems: Problem Status Onset Code Family history of von Willebrand disease Acute Z83.2 Chronic GERD Acute K21.9 Rectal bleeding Acute K62.5 Medical History Medical History Exposure to environmental hazard Burn pit exposure Eczema URI (upper respiratory infection) GERD (gastroesophageal reflux disease) Family history of alcoholism Right hip pain Low back pain Surgical History Surgical History Hx of shoulder surgery left shoulder x2 Tobacco Smoking/Tobacco Use Status: Former Tobacco Use Alcohol Alcohol Intake: current Alcohol intake frequency: a few times a month Alcohol type: beer, wine and hard liquor Substance Use Substance use: Never Substance use type: does not use Vital Signs and Lab Results Vital Signs Most Recent Vital Signs in EMR: Most Recent Vital Signs Temp Pulse Resp BP Pulse Ox 36.8 C 44 L 16 134/92 H 98 06/15/24 07:59 06/15/24 07:59 06/15/24 07:59 06/15/24 07:59 06/15/24 07:59 Lab Results Blood Type / Crossmatch: No Data to Display Complete Blood Count: No Data to Display Complete Metabolic Panel: No Data to Display Liver Function Panel: No Data to Display Coagulation Panel: No Data to Display Cardiac Panel: No Data to Display Arterial Blood Gas: No Data to Display Venous Blood Gas: No Data to Display Pancreas Panel: No Data to Display Thyroid Panel: No Data to Display Infectious Disease: No Data to Display Blood Cultures: No Data to Display Toxicology Panel: No Data to Display Anesthesia Assessment and Plan Anesthesia History Personal History: No History of Anesthesia Complications Family History: No Family History of Anesthesia Complications Exercise Tolerance Exercise Tolerance: Metabolic Equivalents>4 Pertinent Negatives Pertinent Negatives: No Symptoms of GERD (Rx treatment) Cardiac & Pulmonary Exam Cardiac Exam: Normal S1/S2 Heart Sounds Pulmonary Exam: Clear Bilateral Breath Sounds Implantable Cardiac Device Does patient have a Pacemaker or an ICD?: No Airway Exam Known Difficult Airway: No Mallampati Class: 2 Mouth Opening: Normal (> 3cm) Thyromental Distance: Greater than 3 cm Neck Range of Motion: Full ROM Neck Circumference: Normal Teeth Condition: Normal Dentition ASA Classification ASA Score: ASA 2 Emergency Case?: No NPO Status NPO Status: NPO Clears >2 hours, Solids >8 hours Anesthesia Plan Resuscitation Status: Full Code Anesthesia Technique: General Anesthesia Airway Planned: Natural Airway Monitors Used: Standard Monitors
[2024-06-15 08:26] VITALS: BMI 26.2
--- NOTE | 2024-06-15 09:40 | BOWEL_PTH ---
PATIENT: Jovan Subramanian LOC: [facility] U#:[id number] AGE/SX: 34/M ROOM: RE06/15/[address]: Re Ackerman : 1990 BED: DIS: 06/15/2024 SPEC #: [id number] RECD: 06/15/24 13:00 STATUS: MURTAZA REKb #: [id number] MARKUS: 06/15/24 09:[address]: Re Ackerman DEPT: Surgical Specimen RECD BY: Loreto Pires ENTERED: 06/15/24 13:02 SP TYPE: Bowel OTHR DR: Bridget Urbina Tissues: 1 - BIOPSY BOWEL 2 - BIOPSY BOWEL 3 - STOMACH BIOPSY 4 - STOMACH BIOPSY 5 - ESOPHAGUS BIOPSY 6 - ESOPHAGUS BIOPSY 7 - BIOPSY BOWEL 8 - BIOPSY BOWEL 9 - BIOPSY BOWEL 10 - BIOPSY BOWEL 11 - BIOPSY BOWEL 12 - BIOPSY BOWEL 13 - BIOPSY BOWEL Procedures: GROSS AND MICRO LEVEL 4 Comments: [id number]
[2024-06-15 10:16] VITALS: BP 117/76; PULSE 54; RESP 14; TEMP 36.5; O2SAT 97
[2024-06-15 10:37] VITALS: BP 124/77; PULSE 48; RESP 17; O2SAT 98
--- NOTE | 2024-06-15 11:32 | W.ANESPOSTOP ---
Postoperative Evaluation Date, Time and Location Date Performed: 06/15/24 Time Performed: 11:32 Patient Location: Day Surgery Unit Vital Signs Most Recent Imported Vital Signs: Most Recent Vital Signs Temp Pulse Resp BP Pulse Ox 36.5 C 48 L 17 124/77 98 06/15/24 10:16 06/15/24 10:37 06/15/24 10:37 06/15/24 10:37 06/15/24 10:37 Pain Score Most Recent Pain Score: Most Recent Pain Score Pain Level 0 06/15/24 10:37 Assessment Mental Status: Awake (Alert & Oriented to Patient Baseline) Airway and Respiratory Function: Patent airway with normal (patient baseline) respiratory exam Cardiovascular Function: Hemodynamically Stable Hydration Status: Adequately Hydrated Nausea & Vomiting: No Nausea or Vomiting Pain: Pt. Denies Any Pain Peripheral Nerve Block: Patient did not receive a nerve block
== END 2024-06-15 11:27 | disposition home or self-care (01) ==
LOC: SUR 07:48
PROVIDERS: PCP Physician Assistant; Visit Provider Surgery
PROC: (CPT 45380; principal; 2024-06-15 09:15)
DX: K62.5 Hemorrhage of anus and rectum; K20.90 Esophagitis, unspecified without bleeding; K29.80 Duodenitis without bleeding; K29.70 Gastritis, unspecified, without bleeding; K22.89 Other specified disease of esophagus
CPT/HCPCS: 45380; 43239; 88305; J2001; J2704

== ENCOUNTER → 2025-09-30 03:19 | Outpatient (CLI) | payer OTHER, SELFPAY ==
--- NOTE | 2025-09-30 14:59 | DI.RAD_ITS ---
Exam(s) XR KNEE RT 3V AP,LAT,TEMI EXAM: XR KNEE RT 3V AP,LAT,TEMI CLINICAL HISTORY: RT KNEE PAIN,M25.561,? MENISCAL INJURY,[id number]. TECHNIQUE: 2D digital imaging was performed. COMPARISON: No exams were available for comparison FINDINGS: No evidence of fracture nor prominent joint effusion. There is no narrowing of the knee joint space. There is subtle subarticular lucency in the main weight-bearing surface of the medial femoral condyle which is probably degenerative. Does not have the appearance of an osteochondral defect. In addition, there I is also more marginal osteophyte off the inner aspect of the medial femoral condyle. There are no osteophytes in the lateral compartment. Both medial lateral compartments exhibit normal height. There is no chondrocalcinosis. Bone density normal. No osseous lesions. IMPRESSION: No acute osseous findings. There are subtle degenerative changes in the medial compartment DATA REPOSITORY: RADIATION DOSE DELIVERED:
== END ==
PROVIDERS: PCP Physician Assistant; Visit Provider Physician Assistant
DX: M25.561 Pain in right knee (principal)
CPT/HCPCS: 73562

== ENCOUNTER → 2025-10-31 00:37 | Outpatient (CLI) | payer OTHER, SELFPAY ==
--- NOTE | 2025-10-31 07:04 | DI.MRI_ITS ---
Exam(s) MR LOWER JOINT RT WO EXAM: MR LOWER JOINT RT WO CLINICAL HISTORY: R KNEE PAIN, ? MENISCAL TEAR,M25.561,[id number] TECHNIQUE: Multiplanar multisequence MRI of the knee was performed. COMPARISON: CR XR KNEE RT 3V AP,LAT,TEMI from 09/30/2025 FINDINGS: EFFUSION: There is a small amount of increased joint fluid. No large joint effusion and there is no Argueta cyst in the popliteal fossa. MARROW:There is no evidence of fracture, bone contusion, nor osteochondral defects.. There are no significant osseous lesions. PATELLOFEMORAL COMPARTMENT: The quadriceps tendon is intact. The patellar ligament is intact. There is small area of surface irregularity in the retropatellar articular cartilage just lateral of center. There appears to be a small cartilage fissure at this level but this fissure does not extend deep to the patellar both level. There is no abnormal intraosseous signal in the patella. There is no intraosseous signal to suggest recent patellar dislocation. There are no patellar retinacular tears. There is a focus of signal abnormality in the mid aspect of the anterior intra- articular Hoffa fat pad measuring 1.0 x 1.0 cm CRUCIATE LIGAMENTS: The anterior cruciate ligament is intact.The posterior cruciate ligament is intact. MEDIAL COMPARTMENT/MEDIAL MENISCUS: The posterior horn of the medial meniscus is intact. There is a focus of signal abnormality in the most anterior aspect of the anterior horn of the medial meniscus consistent with cystic degenerative change. However, there is an adjacent small parameniscal cyst seen on the sagittal images at this level measuring 4 x 3 mm. There are no chondral defects, osteochondral defects, nor subarticular marrow edema. There is a tiny osteophyte off the inner aspect of the medial femoral condyle noted. No bone edema at this level. MEDIAL COLLATERAL LIGAMENT: Intact LATERAL COMPARTMENT/LATERAL MENISCUS: There is some radial tearing along the inner aspect of the body of the lateral meniscus. There is no bucket-handle configuration. Remainder of the meniscus including the root are intact.There does not appear to be significant articular cartilage thinning in the lateral compartment and there is no subarticular intraosseous edema. No osteochondral defects. No osteophytes in the lateral compartment. ILIOTIBIAL BAND: Intact LATERAL COLLATERAL LIGAMENT COMPLEX: The fibular collateral ligament is intact. The biceps femoris tendon is intact.Popliteus muscle and tendon are intact. IMPRESSION: 1. There is cystic degenerative change in the anterior horn of the medial meniscus. In addition at this level there is a small degenerative parameniscal cyst measuring 4 x 3 mm and therefore this is most probably an anterior horn tear. The posterior horn of the medial meniscus is intact 2. There is mild radial tearing on the inner aspect of the body of the lateral meniscus. There is no bucket-handle configuration. 3. There are no cruciate nor collateral ligament tears. 4. Small focus of chondromalacia in the the retropatellar cartilage as described above. There is no bone edema evident in the patella. 5. Small joint effusion. There are no obvious loose intra-articular bodies. No Argueta's cyst. DATA REPOSITORY:
== END ==
PROVIDERS: PCP Physician Assistant; Visit Provider Student in an Organized Health Care Education/Training Program
DX: M25.561 Pain in right knee (principal); S83.281A Other tear of lateral meniscus, current injury, right knee, initial encounter; X58.XXXA Exposure to other specified factors, initial encounter
CPT/HCPCS: 73721